=== PATIENT | male | born 2000 | race Caucasian/White ===

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

== ENCOUNTER 2021-01-29 20:47 | Emergency (ER) | payer OTHER ==
[~2021-01-29] VITALS: Ht 190.5 cm; Wt 102.1 kg
[~2021-01-29 20:47] MED LIST: HYDROXYZINE HCL25 M1 PO; NOHOMEMEDICATIONS; PREDNISONE50 MG PO; TOPICORT60 G2 TOP
[2021-01-29] MEDS ORDERED: DOXYCYCLINE 10100 MG PO (21:45)
[2021-01-29 21:53] VITALS: BP 146/86
== END 2021-01-29 21:53 | disposition home or self-care (01) ==
LOC: M.ERS 20:47
DX: S60.351A Superficial foreign body of right thumb, initial encounter (principal); X58.XXXA Exposure to other specified factors, initial encounter; Y93.89 Activity, other specified; Y92.89 Other specified places as the place of occurrence of the external cause; Y99.8 Other external cause status